=== PATIENT | female | born 1950 | race Caucasian/White ===

== ENCOUNTER 2016-12-12 16:30 | Outpatient (CLI) | payer MEDICARE, OTHER ==
[2014-07-20 19:57] VITALS: BMI 33.3
[~2016-12-12 16:30] MED LIST: GABAPENTIN100 MG PO; HYDROCODONE-APA1 TAB PO; HYZAAR 100-12.51 TAB PO; PHENERGAN25 M1 PO; PRAVACHOL40 MG PO; PRILOSEC20 MG PO; RESTORIL15 MG PO
== END 2016-12-12 17:04 | disposition home or self-care (01) ==
LOC: D.MAMMO 16:30
DX: Z12.31 Encounter for screening mammogram for malignant neoplasm of breast (principal)

== ENCOUNTER → 2018-01-29 19:18 | Outpatient (CLI) | payer MEDICARE, OTHER ==
[2014-07-20 19:57] VITALS: BMI 33.3
== END | disposition home or self-care (01) ==
LOC: D.MAMMO 01-23 10:15
DX: Z12.31 Encounter for screening mammogram for malignant neoplasm of breast (principal)

== ENCOUNTER → 2019-01-30 13:00 | Outpatient (CLI) | payer MEDICARE, OTHER ==
[2014-07-20 19:57] VITALS: BMI 33.3
== END | disposition home or self-care (01) ==
LOC: D.MAMMO 12-10 11:45
PROVIDERS: ATTEND Family Medicine
DX: Z12.31 Encounter for screening mammogram for malignant neoplasm of breast (principal)

== ENCOUNTER → 2020-08-05 19:17 | Outpatient (CLI) | payer MEDICARE, OTHER ==
[2014-07-20 19:57] VITALS: BMI 33.3
== END | disposition home or self-care (01) ==
LOC: D.MAMMO 10:15
PROVIDERS: ATTEND Family Medicine
DX: Z12.31 Encounter for screening mammogram for malignant neoplasm of breast (principal)